=== PATIENT | female | born 1955 | race Caucasian/White ===

== ENCOUNTER 2020-09-04 11:56 | Emergency (ER) | payer MEDICARE ==
[2020-09-04 12:08] VITALS: RESP 18; TEMP 98.7
[2020-09-04] MEDS ORDERED: KETOROLAC 15 MG/ML 1 ML VIAL IVP STA (12:42)
--- NOTE | 2020-09-04 12:47 | ED ---
Chest Pain HPI - General Chief Complaint: Chest Pain Stated Complaint: chest pain Time Seen by Provider: 09/04/20 12:14 Source: patient, RN/MD, RN notes reviewed Mode of arrival: wheelchair Limitations: no limitations - History of Present Illness Initial Comments: This is a 64-year-old female with no prior history of heart disease who has been having intermittent episodes of midsternal chest pain for the past 3 days on and off. He states it hurts at times gets intermittent last 1-2 minutes and then go away. He states it worse it's about 8/10. She has some sweats with it when it comes on no shortness of breath no fevers or chills. She states she's been doing a lot of bloating of seen and wheezing for one region to another. She's been going upstairs was seen and also. She currently is working on a swimming pool. She's had no cough no phlegm production no palpitations no other complaints or modifying factors she states she does have fibrocystic breast disease and does have chest wall or chest and breast tenderness at times. MD Complaint: chest pain - Related Data Previous Rx's Medication Instructions Recorded Ibuprofen 800 mg PO Q6HR PRN #20 tablet 09/04/20 Allergies Allergy/AdvReac Type Severity Reaction Status Date / Time No Known Allergies Allergy Verified 09/04/20 12:08 Review of Systems ROS Statement: Those systems with pertinent positive or pertinent negative responses have been documented in the HPI. ROS Other: All systems not noted in ROS Statement are negative. EKG Findings - EKG Results: EKG: interpreted by ERMD, sinus rhythm ( palpation along the costal sternal margins no step-off or crepitation. and he shows normal sinus rhythm a 74. Interval 132 QRS 70 QT since QTC 380/421 this is comparable to 1 cm the patient's doctor's office.) Past Medical History Past Medical History: Hyperlipidemia, Thyroid Disorder Additional Past Medical History / Comment(s): pt on diabetic pill for recent weight gain, denies being diabetic History of Any Multi-Drug Resistant Organisms: None Reported Past Surgical History: Section, Cholecystectomy Additional Past Surgical History / Comment(s): bowel resection for scar tissue Past Psychological History: Anxiety, Depression Smoking Status: Former smoker Past Alcohol Use History: None Reported Past Drug Use History: None Reported General Exam - General Exam Comments Initial Comments: This is a well-developed well-nourished awake alert oriented 3 female Limitations: no limitations General appearance: alert, in no apparent distress Head exam: Present: atraumatic, normocephalic, normal inspection Eye exam: Present: normal appearance, PERRL, EOMI. Absent: scleral icterus, conjunctival injection, periorbital swelling ENT exam: Present: normal exam, mucous membranes moist Neck exam: Present: normal inspection, full ROM, other. Absent: tenderness, meningismus, lymphadenopathy Respiratory exam: Present: normal lung sounds bilaterally, chest wall tenderness (Genitourinary bruits). Absent: respiratory distress, wheezes, rales, rhonchi, stridor Cardiovascular Exam: Present: regular rate, normal rhythm, normal heart sounds. Absent: systolic murmur, diastolic murmur, rubs, gallop, clicks GI/Abdominal exam: Present: soft, normal bowel sounds. Absent: distended, tenderness, guarding, rebound, rigid Extremities exam: Present: normal inspection, full ROM, normal capillary refill. Absent: tenderness, pedal edema, joint swelling, calf tenderness Back exam: Present: normal inspection Neurological exam: Present: alert, oriented X3, CN II-XII intact Psychiatric exam: Present: normal affect, normal mood Skin exam: Present: warm, dry, intact, normal color. Absent: rash Course Vital Signs 09/04/20 09/04/20 09/04/20 11:58 12:36 13:10 Temperature 98.7 F Pulse Rate 77 87 65 Respiratory 18 18 18 Rate Blood Pressure 138/83 142/75 139/73 O2 Sat by Pulse 100 98 99 Oximetry Chest Pain MDM - MDM Imaging reviewed no acute findings reevaluation patient finds he feels improved the presentation is consistent with a chest wall strain and costochondritis she'll be discharged on appropriate anti-inflammatories we did have a long discu ssion regarding S patient will be discharged with follow-up with her doctor as needed and return when necessary Disposition Clinical Impression: Costochondritis, Chest wall syndrome Disposition: HOME SELF-CARE Condition: Good Instructions (If sedation given, give patient instructions): Costochondritis (ED) Prescriptions: Ibuprofen 800 mg PO Q6HR PRN #20 tablet PRN Reason: Pain Is patient prescribed a controlled substance at d/c from ED?: No Referrals: Leyla Meier DO [Primary Care Provider] - 1-2 days
[2020-09-04 12:50] LABS: Basophils # (A) 0.1 k/uL (0-0.2); Basophils % (A) 1 %; Eosinophils # (A) 0.4 k/uL (0-0.7); Eosinophils % (A) 5 %; HCT 39.4 % (34.0-46.0); Lymphocytes # (A) 1.9 k/uL (1.0-4.8); Lymphocytes % (A) 24 %; MCH 30.5 pg (25.0-35.0); MCHC 35.4 g/dL (31.0-37.0); MCV 86.1 fL (80.0-100.0); Mean Platelet Volume 6.6; Monocytes # (A) 0.4 k/uL (0-1.0); Monocytes % (A) 6 %; Neutrophils # (A) 5.1 k/uL (1.3-7.7); Neutrophils % (A) 64 %; Platelet Count 242 k/uL (150-450); RBC 4.58 m/uL (3.80-5.40)
--- NOTE | 2020-09-04 13:03 | XR ---
EXAMINATION TYPE: XR chest 2V DATE OF EXAM: 09/04/2020 COMPARISON: NONE HISTORY: Chest pain TECHNIQUE: Frontal and lateral views of the chest are obtained. FINDINGS: No evident airspace disease, pneumothorax, or pleural effusion. Cardiac mediastinal silhou ette, pulmonary vascularity and daryn are within normal limits. There are overlying leads. Surgical cl ips are present in the right upper quadrant. IMPRESSION: No acute cardiopulmonary process.
[2020-09-04 13:08] LABS: Albumin 4.2 g/dL (3.5-5.0); Calcium 9.5 mg/dL (8.4-10.2); Magnesium 1.8 mg/dL (1.6-2.3); Potassium 4.3 mmol/L (3.5-5.1); Total Bilirubin 0.5 mg/dL (0.2-1.3); Total Protein 6.8 g/dL (6.3-8.2)
[2020-09-04 13:22] LABS: D-Dimer 0.42 mg/L FEU (<0.60); INR 0.9 (<1.2); Partial Thromboplastin Time 24.3 sec (22.0-30.0); Prothrombin Time 10.1 sec (9.0-12.0)
[2020-09-04 13:59] VITALS: BP 142/69; PULSE 77
== END 2020-09-04 13:59 | disposition home or self-care (01) ==
LOC: EC 11:56
DX: M94.0 Chondrocostal junction syndrome [Tietze] (principal); R61 Generalized hyperhidrosis; R06.2 Wheezing; R14.0 Abdominal distension (gaseous); Z87.891 Personal history of nicotine dependence
CPT/HCPCS: 36415; 93005; 85379; 83880; 80053; 82550; 83690; 83735; 84484; 85025; 85610; 85730; 71046; 99285; 96374; J1885

== ENCOUNTER → 2020-10-16 | Outpatient (CLI) | payer MEDICARE ==
--- NOTE | 2020-10-23 10:36 | MM ---
Reason for exam: screening (asymptomatic). Last mammogram was performed 1 year ago. History: Patient is postmenopausal. Cyst aspiration of the left breast. 2 benign cyst aspirations of the right breast. Took hormonal contraceptives for 6 months. Took estrogen for 2 years beginning at age 50. Physical Findings: A clinical breast exam by your physician is recommended on an annual basis and results should be correlated with mammographic findings. MG 3D Screening Mammo W/Cad Bilateral CC and MLO view(s) were taken. Prior study comparison: October 11, 2019, mammogram, performed at [facility]. January 27, 2018, mammogram, performed at [facility]. November 02, 2013, bilateral MG screening mammo w CAD. The breast tissue is heterogeneously dense. This may lower the sensitivity of mammography. There is chronic nodularity in the right breast medial anterior CC view. Lobulated asymmetric density anterior central right MLO view is more defined. ASSESSMENT: Incomplete: need additional imaging evaluation, BI-RAD 0 RECOMMENDATION: Special view mammogram of the right breast. (3D) If lesion persists on supplemental views, image directed ultrasound is recommended. [facility] will attempt to contact patient to return for supplemental views and ultrasound if indicated.
== END | disposition home or self-care (01) ==
LOC: RADMAMWWP 13:34
PROVIDERS: ATTEND Family Medicine
DX: Z12.31 Encounter for screening mammogram for malignant neoplasm of breast (principal)
CPT/HCPCS: 77063; 77067

== ENCOUNTER → 2021-10-30 | Outpatient (CLI) | payer MEDICARE ==
--- NOTE | 2021-10-31 09:20 | MM ---
Reason for Exam: Screening (asymptomatic). Last screening mammogram was performed 12 month(s) ago. Patient History: Menarche at age 9. First Full-Term at age 26. Left ovary removed at age 48. Right ovary removed at age 48. Hysterectomy at age 48. Postmenopausal. Patient has history of breast feeding. Estrogen for 2 years from age 50 until age 52. Hormonal Contraceptives for 6 months. Benign Cyst Aspiration on the right side. Benign Cyst Aspiration on the right side. Cyst Aspiration on the Left side. Risk Values: Sanjuanita 5 year model risk: 2.1%. NCI Lifetime model risk: 6.7%. Prior Study Comparison: 01/27/2018 Screening Mammogram, [facility]. 10/11/2019 Screening Mammogram, [facility]. 10/16/2020 Bilateral Screening Mammogram, [facility]. Tissue Density: The breast tissue is heterogeneously dense. This may lower the sensitivity of mammography. Findings: Analyzed By CAD. There is no suspicious group of microcalcifications or new suspicious mass in either breast. Chronic nodularity within the right breast. Similar lobulated asymmetric density in the anterior central right MLO view. Overall Assessment: Incomplete: need additional imaging evaluation, BI-RAD 0 Management: Diagnostic Mammogram of the right breast. A clinical breast exam by your physician is recommended on an annual basis and results should be correlated with mammographic findings. [facility] will attempt to contact patient to return for supplemental views and ultrasound if indicated. Electronically signed and approved by: Filemon Loaiza D.O.
== END | disposition home or self-care (01) ==
LOC: RADMAMWWP 14:33
PROVIDERS: ATTEND Family Medicine
DX: Z12.31 Encounter for screening mammogram for malignant neoplasm of breast (principal)
CPT/HCPCS: 77063; 77067

== ENCOUNTER → 2021-11-09 | Outpatient (CLI) | payer MEDICARE ==
--- NOTE | 2021-11-09 14:26 | MM ---
Reason for Exam: Additional evaluation requested from abnormal screening. Last screening mammogram was performed less than 1 month ago. Patient History: Menarche at age 9. First Full-Term at age 26. Left ovary removed at age 48. Right ovary removed at age 48. Hysterectomy at age 48. Postmenopausal. Patient has history of breast feeding. Estrogen for 2 years from age 50 until age 52. Hormonal Contraceptives for 6 months. Benign Cyst Aspiration on the right side. Benign Cyst Aspiration on the right side. Cyst Aspiration on the Left side. Risk Values: Sanjuanita 5 year model risk: 2.1%. NCI Lifetime model risk: 6.7%. Prior Study Comparison: 12/29/2008 Bilateral Diagnostic Mammogram, [facility]. 10/05/2010 Bilateral Diagnostic Mammogram, [facility]. 10/05/2010 Left Diagnostic Ultrasound, [facility]. 11/02/2013 Bilateral Screening Mammogram, [facility]. 01/27/2018 Screening Mammogram, [facility]. 10/11/2019 Screening Mammogram, [facility]. 10/16/2020 Bilateral Screening Mammogram, [facility]. 10/30/2021 Bilateral MG 3D screening mammo w/cad, [facility]. Tissue Density: Right: The breast tissue is heterogeneously dense. This may lower the sensitivity of mammography. Findings: Analyzed By CAD. A compression craniocaudal view there is irregular density which appears to be 3 cm from the nipple at approximately the 4:00 position. This is less well-visualized on the rolled medial view and compression mediolateral oblique view. Additional evaluation with ultrasound is recommended. Overall Assessment: Incomplete: need additional imaging evaluation, BI-RAD 0 Management: Diagnostic Breast Ultrasound of the right breast. A clinical breast exam by your physician is recommended on an annual basis and results should be correlated with mammographic findings. This exam should not preclude additional follow-up of suspicious palpable abnormalities. Results were given to the patient verbally at the time of exam. Electronically signed and approved by: Juan Hanks D.O. Radiologis
--- NOTE | 2021-11-09 15:11 | USB ---
Patient History: Menarche at age 9. First Full-Term at age 26. Left ovary removed at age 48. Right ovary removed at age 48. Hysterectomy at age 48. Postmenopausal. Patient has history of breast feeding. Estrogen for 2 years from age 50 until age 52. Hormonal Contraceptives for 6 months. Benign Cyst Aspiration on the right side. Benign Cyst Aspiration on the right side. Cyst Aspiration on the Left side. Risk Values: Sanjuanita 5 year model risk: 2.1%. NCI Lifetime model risk: 6.7%. Prior Study Comparison: 10/11/2019 Screening Mammogram, [facility]. 10/16/2020 Bilateral Screening Mammogram, [facility]. 10/30/2021 Bilateral MG 3D screening mammo w/cad, [facility]. Findings: The medial section of the breast of the right breast, the axilla of the right breast and the retroareolar of the right breast were scanned. There is a lobular hypoechoic area at the 4:00 position 3 cm from the nipple. Corresponds to the mammographic findings. Posterior shadowing is present. Findings are considered suspicious and ultrasound-guided core biopsy is recommended. Overall Assessment: Suspicious, BI-RAD 4 Management: Ultrasound Core Biopsy of the right breast. A clinical breast exam by your physician is recommended on an annual basis and results should be correlated with mammographic findings. Electronically signed and approved by: Juan Hanks D.O. Radiologis
== END | disposition home or self-care (01) ==
LOC: RADMAMWWP 13:30
PROVIDERS: ATTEND Family Medicine
DX: R92.8 Other abnormal and inconclusive findings on diagnostic imaging of breast (principal)
CPT/HCPCS: 77065; 76642; G0279; 77061

== ENCOUNTER → 2021-12-07 | Outpatient (CLI) | payer MEDICARE ==
[2021-12-07 10:20] VITALS: BP 145/81; PULSE 78; RESP 12; TEMP 98.1
--- NOTE | 2021-12-07 11:11 | P.GSHP ---
History of Present Illness H&P Date: 12/07/21 Chief Complaint: abnormal right breast ultrasound Karina is a 66 year old white female seen in consultation for Dr. Nicole regarding an abnormal right breast ultrasound. She does not feel any changes in her breast. [place] [address] after which a diagnostic right breast mammogram and [place]. [place] [id number]. In the ultrasound a lobular hypoechoic area at the 4 o'clock position of the right breast was identified for which core biopsy was recommended. On the diagnostic mammogram was felt to be incomplete and ultrasound was recommended. She has had multiple cyst aspirations on the right breast in the past. She has never had any surgery on her breast. She is not complaining of any recent trauma or infection in the breast. Caffeine:stopped 3 weeks ago nicotine: stopped 40 years ago chocolate: daily BCP: 1 year at 16 hormones: 2 years at menopause, used them to get Family History: maternal grandfather: bladder cancer paternal grandfather: stomach paternal aunt: ? origin Hormonal History: menarche: 9 , breast fed: yes, age at first : 26 menopause: BENJA, done in 2004; concerns for cancer was negative at surgery Surgical History; Appy BENJA gallbaldder adhesions to small bowel Medical History: given after a mental breakdown/paroxetine simvastatin levothyroxine aspirin diet controlled diabetes - Constitutional Constitutional: Reports sweats - EENT Comment: cataract surgery Ears: deny: tinnitus Ears, nose, mouth and throat: Denies headache, Denies sore throat - Breasts Breasts: bilateral: as per HPI - Cardiovascular Cardiovascular: Denies chest pain, Denies shortness of breath - Respiratory Respiratory: Denies cough, Denies 7 - Gastrointestinal Gastrointestinal: Denies abdominal pain, Denies diarrhea, Denies nausea, Denies vomiting - Genitourinary (Female) Genitourinary: Denies dysuria, Denies hematuria - Menstruation Menstruation: Reports post hysterectomy - Musculoskeletal Musculoskeletal: Reports myalgias - Integumentary Integumentary: Denies pruritus, Denies rash - Neurological Neurological: Denies numbness, Denies weakness - Psychiatric Psychiatric: Reports as per HPI - Endocrine Endocrine: Reports fatigue, Denies weight change - Hematologic/Lymphatic Hematologic/Lymphatic: Reports as per HPI - Allergic/Immunologic Allergic/Immunologic: Reports seasonal allergies Past Medical History Past Medical History: Hyperlipidemia, Thyroid Disorder Additional Past Medical History / Comment(s): diet controlled type 2 diabetes History of Any Multi-Drug Resistant Organisms: None Reported Past Surgical History: Section, Cholecystectomy Additional Past Surgical History / Comment(s): bowel resection for scar tissue. Bilat cataract surgery Past Psychological History: Anxiety, Depression Smoking Status: Former smoker Past Alcohol Use History: Occasional Past Drug Use History: None Reported Medications and Allergies Home Medications Medication Instructions Recorded Confirmed Type Aspirin EC [Ecotrin Low Dose] 81 mg PO HS 09/04/20 12/07/21 History Atorvastatin Calcium [Lipitor] 40 mg PO HS 09/04/20 12/07/21 History Levothyroxine Sodium [Synthroid] 112 mcg PO DAILY 09/04/20 12/07/21 History PARoxetine [Paxil] 50 mg PO HS 09/04/20 12/07/21 History Allergies Allergy/AdvReac Type Severity Reaction Status Date / Time No Known Allergies Allergy Verified 12/07/21 10:14 Surgical - Exam Vital Signs Temp Pulse Resp BP Pulse Ox 98.1 F 78 12 145/81 97 12/07/21 10:16 12/07/21 10:16 12/07/21 10:16 12/07/21 10:16 12/07/21 10:16 BMI: 27.8 - General no distress - Eyes normal ocular movement - Neck trachea midline - Respiratory normal respiratory effort - Cardiovascular Rhythm: regular Heart Sounds: normal: S1, S2 - Abdomen Abdomen: soft, non tender, no guarding, no rigid, no rebound - Integumentary normal turgor - Neurologic no disoriented, no combative - Musculoskeletal normal gait - Psychiatric oriented to time, oriented to person, oriented to place, speech is normal, memory intact Breast Exam: BRA: XL sports inspection: Bilateral grade 2/3 ptosis Palpation: Right breast: Multiple positional exam fibrocystic changes no discrete dominant masses or nodules of concern Right axilla: No adenopathy of concern Left breast: Multi-positional exam fibrocystic changes no dominant masses or nodules of concern Left axilla: No adenopathy of concern Results ultrasound and mammogram personally reviewed Assessment and Plan Assessment: Impression: given after a mental breakdown/paroxetine simvastatin levothyroxine aspirin diet controlled diabetes Abnormal right breast ultrasound Fibrocystic breast changes Plan: Ultrasound-guided right breast core biopsy Follow-up after ultrasound-guided core biopsy Patient scale risk evaluation reveals a five-year risk of 2.1%, she has declined chemoprevention at this time we will await results of her biopsy CC: Dr. Nicole
== END | disposition home or self-care (01) ==
LOC: WWCWWP 10:05
PROVIDERS: ATTEND Surgery
DX: Z53.9 Procedure and treatment not carried out, unspecified reason (principal)

== ENCOUNTER → 2021-12-10 | Day surgery (SDC) | payer MEDICARE ==
--- NOTE | 2021-12-14 10:48 | USB ---
Risk Values: Sanjuanita 5 year model risk: 2.1%. NCI Lifetime model risk: 6.7%. Pathology Description: Location: 4 o'clock, lower outer quadrant, anterior. Cores: 6 Gauge: 13 The irregular shadowing area measuring up to 9 mm is identified at the 4:00 position, 3 cm from the nipple. This is targeted for biopsy. We note that the patient has complex breast tissue with multiple areas of shadowing. The procedure of ultrasound guided core biopsy was explained to the patient. Benefits, alternatives, and risks were discussed. An informed consent was then obtained. The patient was placed in supine positioning for imaging and for the procedure. The overlying skin was prepped and draped in usual sterile fashion. Lidocaine was used as anesthetic into the skin and subcutaneous tissue up to area of concern in the 4:00 right breast. Under ultrasound guidance, a 13-gauge vacuum-assisted mammotome Elite biopsy gun was used to obtain 6 core samples. Following this, a Hydromark T3 coil clip was placed at the biopsy site. The patient tolerated the procedure well without any immediate complication. The patient was kept in the radiology department for short stay after the procedure and then discharged home in stable condition. Postprocedure mammogram: The patient was transferred to mammography for physician ordered post procedure mammogram for clip placement verification. Mammogram shows clip at the site of mammographic focal asymmetry. However, given patient's complex shadowing tissue diffusely, overall suspicion is low to intermediate. Impression: Successful, uncomplicated ultrasound guided core biopsy of area of concern in the 4:00 right breast, full pathology results to follow. Pathology Results: Result: Benign, Fibrocystic change. 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 Tissue Density: Right: The breast tissue is heterogeneously dense. This may lower the sensitivity of mammography. Overall Assessment: Benign Assessment: MG diagnostic mammo RT wo CAD - Right: Benign, BI-RAD 2. Management: Diagnostic Mammogram of the right breast in 6 months. Electronically signed and approved by: Bertha Riddle M.D. Radiologist
== END ==
LOC: RADUSWWP 12:37
PROVIDERS: ATTEND Surgery
DX: N60.11 Diffuse cystic mastopathy of right breast (principal); N62 Hypertrophy of breast; R92.8 Other abnormal and inconclusive findings on diagnostic imaging of breast
CPT/HCPCS: 88305; 77065; 19083; A4648

== ENCOUNTER → 2022-01-04 | Outpatient (CLI) | payer MEDICARE ==
[2022-01-04 10:26] VITALS: BP 149/78; PULSE 85; RESP 16; TEMP 98.4
--- NOTE | 2022-01-04 10:50 | P.PN ---
Subjective Progress Note Date: 01/04/22 Principal diagnosis: fibrocystic breast disease Karina is a 66 year old whtie female status post a right breast ultrasound guided core biopsy on 12-10-21. 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 The patient tolerated the procedure without difficulty. The findings are felt to be benign and concordant. Objective - Vital Signs Vital signs: Vital Signs Temp 98.4 F 01/04/22 10:23 Pulse 85 01/04/22 10:23 Resp 16 01/04/22 10:23 BP 149/78 01/04/22 10:23 Pulse Ox 96 01/04/22 10:23 FiO2 Intake & Output 01/03/22 01/04/22 01/04/22 18:59 06:59 18:59 Weight 73.482 kg - Constitutional General appearance: Present: cooperative - EENT Eyes: Present: EOMI ENT: Present: hearing grossly normal - Neck Neck: Present: normal ROM - Respiratory Respiratory: bilateral: CTA - Cardiovascular Heart sounds: normal: S1, S2 - Integumentary Integumentary Comment(s): Biopsy site clean and dry no evidence of infection or hematoma Assessment and Plan Assessment: Impression: Fibrocystic changes right breast Sanjuanita risk five-year 2.1% patient declined chemoprevention Plan: Right breast diagnostic mammogram 6 months with physician exam at that time Patient to follow up sooner any questions or concerns Cc: Dr. Otilio Nicole
== END | disposition home or self-care (01) ==
LOC: WWCWWP 09:18
PROVIDERS: ATTEND Surgery
DX: Z53.9 Procedure and treatment not carried out, unspecified reason (principal)

== ENCOUNTER → 2022-06-14 | Outpatient (CLI) | payer MEDICARE ==
[2022-06-14 14:38] VITALS: BP 152/84; PULSE 83; RESP 17; TEMP 98.1
== END ==
LOC: WWCWWP 12:58
PROVIDERS: ATTEND Surgery
DX: R92.8 Other abnormal and inconclusive findings on diagnostic imaging of breast (principal); N60.11 Diffuse cystic mastopathy of right breast; Z78.0 Asymptomatic menopausal state; Z98.890 Other specified postprocedural states; Z79.82 Long term (current) use of aspirin; Z79.890 Hormone replacement therapy; E11.9 Type 2 diabetes mellitus without complications; E78.5 Hyperlipidemia, unspecified; Z87.891 Personal history of nicotine dependence

== ENCOUNTER → 2022-06-14 | Outpatient (CLI) | payer MEDICARE ==
--- NOTE | 2022-06-14 14:27 | MM ---
Reason for Exam: Follow-up at short interval from prior study. Last screening mammogram was performed 7 month(s) ago. Patient History: Menarche at age 9. First Full-Term at age 26. Left ovary removed at age 48. Right ovary removed at age 48. Hysterectomy at age 48. Postmenopausal. Patient has history of breast feeding. Estrogen for 2 years from age 50 until age 52. Hormonal Contraceptives for 6 months. 12/10/2021, Benign US biopsy breast VAD RT on the right side. Benign Cyst Aspiration on the right side. Benign Cyst Aspiration on the right side. Cyst Aspiration on the Left side. Risk Values: Sanjuanita 5 year model risk: 2.5%. NCI Lifetime model risk: 7.9%. Prior Study Comparison: 01/27/2018 Screening Mammogram, [facility]. 10/11/2019 Screening Mammogram, [facility]. 10/16/2020 Bilateral Screening Mammogram, [facility]. 10/30/2021 Bilateral MG 3D screening mammo w/cad, [facility]. 11/09/2021 Right MG 3D work up w/cad RT, [facility]. 12/10/2021 Right MG diagnostic mammo RT wo CAD, [facility]. Tissue Density: Right: The breast tissue is heterogeneously dense. This may lower the sensitivity of mammography. Findings: Analyzed By CAD. No evidence for mass or distortion. Microclip marker right breast. No suspicious calcifications. Overall Assessment: Benign, BI-RAD 2 Management: Screening Mammogram of both breasts in 6 months. A clinical breast exam by your physician is recommended on an annual basis and results should be correlated with mammographic findings. This exam should not preclude additional follow-up of suspicious palpable abnormalities. Results were given to the patient verbally at the time of exam. Electronically signed and approved by: Vikash Gilbert M.D. Radiologis
--- NOTE | 2022-06-14 14:44 | P.PN ---
Subjective Progress Note Date: 06/14/22 Principal diagnosis: right breast follow up mammogram Karina is a 66 year old white female seen in consultation for Dr. Nicole regarding an abnormal right breast ultrasound. She does not feel any changes in her breast. [place] [address] after which a diagnostic right breast mammogram [place]. [place] [id number]. In the ultrasound a lobular hypoechoic area at the 4 o'clock position of the right breast was identified for which core biopsy was recommended. On the diagnostic mammogram was felt to be incomplete and ultrasound was recommended. She has had multiple cyst aspirations on the right breast in the past. She has never had any surgery on her breast. She is not complaining of any recent trauma or infection in the breast. 06-14-22 Karina had a [place] [id number] which is benign BIRADS 2. This was done secondary to the fact that she had an ultrasound core biopsy of the right breast on [id number]. This was benign and concordant. She does not feel any lumps masses or nodules of concern in either breast. Sanjuanita risk evaluation 2.5% at 5 years, we have discussed chemoprophylaxis the patient has declined. Caffeine:stopped 3 weeks ago nicotine: stopped 40 years ago chocolate: daily BCP: 1 year at 16 hormones: 2 years at menopause, used them to get Family History: maternal grandfather: bladder cancer paternal grandfather: stomach paternal aunt: ? origin Hormonal History: menarche: 9 , breast fed: yes, age at first : 26 menopause: BENJA, done in 2004; concerns for cancer was negative at surgery Surgical History; Appkallie YOUSIF gallbaldder adhesions to small bowel Medical History: given after a mental breakdown/paroxetine simvastatin levothyroxine aspirin diet controlled diabetes - Constitutional Constitutional: Reports sweats - EENT Comment: cataract surgery Ears: deny: tinnitus Ears, nose, mouth and throat: Denies headache, Denies sore throat - Breasts Breasts: bilateral: as per HPI - Cardiovascular Cardiovascular: Denies chest pain, Denies shortness of breath - Respiratory Respiratory: Denies cough, Denies 7 - Gastrointestinal Gastrointestinal: Denies abdominal pain, Denies diarrhea, Denies nausea, Denies vomiting - Genitourinary (Female) Genitourinary: Denies dysuria, Denies hematuria - Menstruation Menstruation: Reports post hysterectomy - Musculoskeletal Musculoskeletal: Reports myalgias - Integumentary Integumentary: Denies pruritus, Denies rash - Neurological Neurological: Denies numbness, Denies weakness - Psychiatric Psychiatric: Reports as per HPI - Endocrine Endocrine: Reports fatigue, Denies weight change - Hematologic/Lymphatic Hematologic/Lymphatic: Reports as per HPI - Allergic/Immunologic Allergic/Immunologic: Reports seasonal allergies Past Medical History Past Medical History: Hyperlipidemia, Thyroid Disorder Additional Past Medical History / Comment(s): diet controlled type 2 diabetes History of Any Multi-Drug Resistant Organisms: None Reported Past Surgical History: Section, Cholecystectomy Additional Past Surgical History / Comment(s): bowel resection for scar tissue. Bilat cataract surgery Past Psychological History: Anxiety, Depression Smoking Status: Former smoker Past Alcohol Use History: Occasional Past Drug Use History: None Reported Medications and Allergies Home Medications Medication Instructions Recorded Confirmed Type Aspirin EC [Ecotrin Low Dose] 81 mg PO HS 09/04/20 12/07/21 History Atorvastatin Calcium [Lipitor] 40 mg PO HS 09/04/20 12/07/21 History Levothyroxine Sodium [Synthroid] 112 mcg PO DAILY 09/04/20 12/07/21 History PARoxetine [Paxil] 50 mg PO HS 09/04/20 12/07/21 History Allergies Allergy/AdvReac Type Severity Reaction Status Date / Time No Known Allergies Allergy Verified 12/07/21 10:14 Objective - Constitutional General appearance: Present: cooperative - EENT Eyes: Present: EOMI ENT: Present: hearing grossly normal - Neck Neck: Present: normal ROM - Respiratory Respiratory: bilateral: CTA - Cardiovascular Rhythm: regular Heart sounds: normal: S1, S2 - Gastrointestinal General gastrointestinal: Present: soft - Integumentary Integumentary: Present: normal turgor - Musculoskeletal Musculoskeletal: Present: gait normal - Psychiatric Psychiatric: Present: A&O x's 3, appropriate affect, intact judgment & insight - Additional findings Additional findings: Breast Exam: BRA: XL sports inspection: Bilateral grade 2/3 ptosis Palpation: Right breast: Multiple positional exam fibrocystic changes no discrete dominant masses or nodules of concern Right axilla: No adenopathy of concern Left breast: Multi-positional exam fibrocystic changes no dominant masses or nodules of concern Left axilla: No adenopathy of concern Assessment and Plan Assessment: Impression: given after a mental breakdown/paroxetine simvastatin levothyroxine aspirin diet controlled diabetes fibrocystic breast changes Right breast mammogram [id number] benign BIRADS 2 Plan: Bilateral mammogram and physician exam in 6 months Patient to follow up sooner any questions or concerns CC: Dr. Nicole
== END | disposition home or self-care (01) ==
LOC: RADMAMWWP 13:31
PROVIDERS: ATTEND Surgery
DX: R92.8 Other abnormal and inconclusive findings on diagnostic imaging of breast (principal); Z78.0 Asymptomatic menopausal state; Z98.890 Other specified postprocedural states
CPT/HCPCS: 77065; G0279; 77061

== ENCOUNTER → 2022-12-19 | Outpatient (CLI) | payer MEDICARE ==
[2022-12-19 14:00] VITALS: BP 148/75; PULSE 95; RESP 18; TEMP 97.9
== END ==
LOC: WWCWWP 13:14
PROVIDERS: ATTEND Surgery
DX: Z12.31 Encounter for screening mammogram for malignant neoplasm of breast (principal)

== ENCOUNTER → 2022-12-19 | Outpatient (CLI) | payer MEDICARE ==
--- NOTE | 2022-12-19 13:44 | P.PN ---
Subjective Progress Note Date: 12/19/22 Principal diagnosis: fibrocystic breast changes 12-19-22 Karina is a 67 year old white female she presents for breast examination. She is not complaining of any new lumps masses or nodules of concern in either breast. A bilateral mammogram was performed on and has not yet been read. 10 multiple cysts aspirated in her right breast. She had a core biopsy of the right breast and [id number] which was benign concordant. Sanjuanita risk evaluation 2.5% at 5 years, we have discussed chemoprophylaxis the patient has declined. Caffeine:stopped 3 weeks ago nicotine: stopped 40 years ago chocolate: daily BCP: 1 year at 16 hormones: 2 years at menopause, used them to get Family History: maternal grandfather: bladder cancer paternal grandfather: stomach paternal aunt: ? origin Hormonal History: menarche: 9 , breast fed: yes, age at first : 26 menopause: BENJA, done in 2004; concerns for cancer was negative at surgery Surgical History; Appy BENJA gallbaldder adhesions to small bowel Medical History: given after a mental breakdown/paroxetine simvastatin levothyroxine aspirin diet controlled diabetes - Constitutional Constitutional: Reports sweats - EENT Comment: cataract surgery Ears: deny: tinnitus Ears, nose, mouth and throat: Denies headache, Denies sore throat - Breasts Breasts: bilateral: as per HPI - Cardiovascular Cardiovascular: Denies chest pain, Denies shortness of breath - Respiratory Respiratory: Denies cough, Denies 7 - Gastrointestinal Gastrointestinal: Denies abdominal pain, Denies diarrhea, Denies nausea, Denies vomiting - Genitourinary (Female) Genitourinary: Denies dysuria, Denies hematuria - Menstruation Menstruation: Reports post hysterectomy - Musculoskeletal Musculoskeletal: Reports myalgias - Integumentary Integumentary: Denies pruritus, Denies rash - Neurological Neurological: Denies numbness, Denies weakness - Psychiatric Psychiatric: Reports as per HPI - Endocrine Endocrine: Reports fatigue, Denies weight change - Hematologic/Lymphatic Hematologic/Lymphatic: Reports as per HPI - Allergic/Immunologic Allergic/Immunologic: Reports seasonal allergies Past Medical History Past Medical History: Hyperlipidemia, Thyroid Disorder Additional Past Medical History / Comment(s): diet controlled type 2 diabetes History of Any Multi-Drug Resistant Organisms: None Reported Past Surgical History: Section, Cholecystectomy Additional Past Surgical History / Comment(s): bowel resection for scar tissue. Bilat cataract surgery Past Psychological History: Anxiety, Depression Smoking Status: Former smoker Past Alcohol Use History: Occasional Past Drug Use History: None Reported Medications and Allergies Home Medications Medication Instructions Recorded Confirmed Type Aspirin EC [Ecotrin Low Dose] 81 mg PO HS 09/04/20 12/07/21 History Atorvastatin Calcium [Lipitor] 40 mg PO HS 09/04/20 12/07/21 History Levothyroxine Sodium [Synthroid] 112 mcg PO DAILY 09/04/20 12/07/21 History PARoxetine [Paxil] 50 mg PO HS 09/04/20 12/07/21 History Allergies Allergy/AdvReac Type Severity Reaction Status Date / Time No Known Allergies Allergy Verified 12/07/21 10:14 Objective - Constitutional General appearance: Present: cooperative - EENT Eyes: Present: EOMI ENT: Present: hearing grossly normal - Neck Neck: Present: normal ROM - Respiratory Respiratory: bilateral: CTA - Cardiovascular Rhythm: regular Heart sounds: normal: S1, S2 - Integumentary Integumentary: Present: normal turgor - Musculoskeletal Musculoskeletal: Present: gait normal - Psychiatric Psychiatric: Present: A&O x's 3, appropriate affect, intact judgment & insight - Additional findings Additional findings: Breast Exam: BRA: XL sports inspection: Bilateral grade 2/3 ptosis Palpation: Right breast: Multiple positional exam fibrocystic changes no discrete dominant masses or nodules of concern Right axilla: No adenopathy of concern Left breast: Multi-positional exam fibrocystic changes no dominant masses or nodules of concern Left axilla: No adenopathy of concern Assessment and Plan Assessment: Impression: given after a mental breakdown/paroxetine simvastatin levothyroxine aspirin diet controlled diabetes fibrocystic breast changes bilateral mammogram 12-19-22 Plan: await results of bilateral mammogram nothing on examination which would warrant interventional biopsy at this time Patient to follow up sooner any questions or concerns CC: Dr. Nicole
--- NOTE | 2022-12-20 20:57 | MM ---
Reason for Exam: Screening (asymptomatic). Last mammogram was performed 1 year(s) and 2 month(s) ago. Patient History: Menarche at age 9. First Full-Term at age 26. Left ovary removed at age 48. Right ovary removed at age 48. Hysterectomy at age 48. Postmenopausal. Patient has history of breast feeding. Estrogen for 2 years from age 50 until age 52. Hormonal Contraceptives for 6 months. 12/10/2021, Benign US biopsy breast VAD RT on the right side. Benign Cyst Aspiration on the right side. Benign Cyst Aspiration on the right side. Cyst Aspiration on the Left side. Risk Values: Sanjuanita 5 year model risk: 2.5%. NCI Lifetime model risk: 7.6%. Prior Study Comparison: 11/09/2021 Right MG 3D work up w/cad RT, [facility]. 12/10/2021 Right MG diagnostic mammo RT wo CAD, [facility]. 06/14/2022 Right MG 3D diag mammo w/cad RT, [facility]. Tissue Density: The breast tissue is heterogeneously dense. This may lower the sensitivity of mammography. Findings: Analyzed By CAD. On the right CC view, a medial asymmetric density located just posterior to the biopsy clip is more defined. On the right MLO view, asymmetric density superiorly at a middle depth and also inferiorly at an anterior depth are both more defined. All of these areas may represent superimposition shadow but further evaluation is recommended. Other areas of asymmetric densities remain unchanged. Overall Assessment: Incomplete: need additional imaging evaluation, BI-RAD 0 Management: Special View Mammogram of the right breast. Diagnostic Breast Ultrasound of the right breast. Additional views to include spot 3-D CC, 3-D CC rolled lateral, spot 3-D MLO of 2 areas, and 3-D LM views. Targeted right breast ultrasound of any persisting abnormality. [facility] will attempt to contact patient to return for supplemental views and ultrasound if indicated. Electronically signed and approved by: Bertha Riddle M.D. Radiologist
== END | disposition home or self-care (01) ==
LOC: RADMAMWWP 13:16
PROVIDERS: ATTEND Surgery
DX: Z12.31 Encounter for screening mammogram for malignant neoplasm of breast (principal); R92.8 Other abnormal and inconclusive findings on diagnostic imaging of breast; Z78.0 Asymptomatic menopausal state
CPT/HCPCS: 77067

== ENCOUNTER → 2023-01-03 | Outpatient (CLI) | payer MEDICARE ==
--- NOTE | 2023-01-03 10:50 | MM ---
Reason for Exam: Additional evaluation requested from prior study. Last screening mammogram was performed less than 1 month ago. Patient History: Menarche at age 9. First Full-Term at age 26. Left ovary removed at age 48. Right ovary removed at age 48. Hysterectomy at age 48. Postmenopausal. Patient has history of breast feeding. Estrogen for 2 years from age 50 until age 52. Hormonal Contraceptives for 6 months. 12/10/2021, Benign US biopsy breast VAD RT on the right side. Benign Cyst Aspiration on the right side. Benign Cyst Aspiration on the right side. Cyst Aspiration on the Left side. Risk Values: Sanjuanita 5 year model risk: 2.5%. NCI Lifetime model risk: 7.6%. Prior Study Comparison: 10/30/2021 Bilateral MG 3D screening mammo w/cad, [facility]. 11/09/2021 Right MG 3D work up w/cad RT, [facility]. 12/10/2021 Right MG diagnostic mammo RT wo CAD, [facility]. 06/14/2022 Right MG 3D diag mammo w/cad RT, [facility]. 12/19/2022 Bilateral MG screening mammo w CAD, [facility]. Tissue Density: Right: The breast tissue is heterogeneously dense. This may lower the sensitivity of mammography. Findings: Analyzed By CAD. Asymmetric density upper outer right breast 8.6 cm from the nipple persists and ultrasound is recommended. More anterior density does not persist at this time. Overall Assessment: Incomplete: need additional imaging evaluation, BI-RAD 0 Management: Diagnostic Breast Ultrasound of the right breast. . Results were given to the patient verbally at the time of exam. Patient should continue monthly self-breast exams. A clinical breast exam by your physician is recommended on an annual basis. This exam should not preclude additional follow-up of suspicious palpable abnormalities. Note on Sanjuanita scores and lifetime risk: 1. A Sanjuanita score greater than 3% is considered moderate risk. If this is the case, consider specialist referral to assess eligibility for a risk reducing agent. 2. If overall lifetime risk for the development of breast cancer is 20% or higher, the patient may qualify for future screening with alternating mammogram and breast MRI. Electronically signed and approved by: Vikash Gilbert M.D. Radiologis
--- NOTE | 2023-01-03 11:27 | USB ---
Reason for Exam: Additional evaluation requested from abnormal screening. Patient History: Menarche at age 9. First Full-Term at age 26. Left ovary removed at age 48. Right ovary removed at age 48. Hysterectomy at age 48. Postmenopausal. Patient has history of breast feeding. Estrogen for 2 years from age 50 until age 52. Hormonal Contraceptives for 6 months. 12/10/2021, Benign US biopsy breast VAD RT on the right side. Benign Cyst Aspiration on the right side. Benign Cyst Aspiration on the right side. Cyst Aspiration on the Left side. Risk Values: Sanjuanita 5 year model risk: 2.5%. NCI Lifetime model risk: 7.6%. Technique: Method: Targeted. Prior Study Comparison: 12/10/2021 Right MG diagnostic mammo RT wo CAD, [facility]. 06/14/2022 Right MG 3D diag mammo w/cad RT, [facility]. 12/19/2022 Bilateral MG screening mammo w CAD, [facility]. Findings: The upper outer quadrant of the right breast, the axilla of the right breast and the retroareolar of the right breast were scanned. Nonmass Elongated hypoechoic area at the right 11:00 position 9 cm from the nipple. Findings could reflect prominent duct. Six-month follow-up advised. Overall Assessment: Probably benign, BI-RAD 3 Management: Diagnostic Mammogram of the right breast in 6 months. A clinical breast exam by your physician is recommended on an annual basis and results should be correlated with mammographic findings. This exam should not preclude additional follow-up of suspicious palpable abnormalities. Results were given to the patient verbally at the time of exam. Electronically signed and approved by: Vikash Gilbert M.D. Radiologis
== END | disposition home or self-care (01) ==
LOC: RADMAMWWP 10:18
PROVIDERS: ATTEND Surgery
DX: R92.331 Mammographic heterogeneous density, right breast (principal); Z78.0 Asymptomatic menopausal state
CPT/HCPCS: 77065; 76642; G0279; 77061

== ENCOUNTER → 2023-07-23 | Outpatient (CLI) | payer MEDICARE ==
--- NOTE | 2023-07-23 13:40 | MM ---
Reason for Exam: Follow-up at short interval from prior study. Last screening mammogram was performed 7 month(s) ago. Patient History: Menarche at age 9. First Full-Term at age 26. Left ovary removed at age 48. Right ovary removed at age 48. Hysterectomy at age 48. Postmenopausal. Patient has history of breast feeding. Estrogen for 2 years from age 50 until age 52. Hormonal Contraceptives for 6 months. 12/10/2021, Benign US biopsy breast VAD RT on the right side. Benign Cyst Aspiration on the right side. Benign Cyst Aspiration on the right side. Cyst Aspiration on the Left side. Risk Values: Sanjuanita 5 year model risk: 2.5%. NCI Lifetime model risk: 7.6%. Prior Study Comparison: 06/14/2022 Right MG 3D diag mammo w/cad RT, [facility]. 12/19/2022 Bilateral MG screening mammo w CAD, [facility]. 01/03/2023 Right MG 3D work up w/cad RT, [facility]. Tissue Density: Right: The breasts are heterogeneously dense, which may obscure small masses. Findings: Analyzed By CAD. Areas of asymmetric density remain unchanged when compared against various prior studies. The previously seen medial and superior focal asymmetry has not persisted. No significant change from prior exams. Overall Assessment: Benign, BI-RAD 2 Management: Screening Mammogram of both breasts in 5 months. Back on schedule. Results were given to the patient verbally at the time of exam. Patient should continue monthly self-breast exams. A clinical breast exam by your physician is recommended on an annual basis. This exam should not preclude additional follow-up of suspicious palpable abnormalities. Note on Sanjuanita scores and lifetime risk: 1. A Sanjuanita score greater than 3% is considered moderate risk. If this is the case, consider specialist referral to assess eligibility for a risk reducing agent. 2. If overall lifetime risk for the development of breast cancer is 20% or higher, the patient may qualify for future screening with alternating mammogram and breast MRI. Electronically signed and approved by: Bertha Riddle M.D. Radiologist
== END | disposition home or self-care (01) ==
LOC: RADMAMWWP 13:17
PROVIDERS: ATTEND Family Medicine
DX: R92.331 Mammographic heterogeneous density, right breast (principal); Z78.0 Asymptomatic menopausal state
CPT/HCPCS: 77065; G0279; 77061

== ENCOUNTER → 2023-12-25 | Outpatient (CLI) | payer MEDICARE ==
--- NOTE | 2023-12-29 09:40 | MM ---
Reason for Exam: Screening (asymptomatic). Last screening mammogram was performed 12 month(s) ago. Patient History: Menarche at age 9. First Full-Term at age 26. Left ovary removed at age 48. Right ovary removed at age 48. Hysterectomy at age 48. Postmenopausal. Patient has history of breast feeding. Estrogen for 2 years from age 50 until age 52. Hormonal Contraceptives for 6 months. 12/10/2021, Benign US biopsy breast VAD RT on the right side. Benign Cyst Aspiration on the right side. Benign Cyst Aspiration on the right side. Cyst Aspiration on the Left side. Risk Values: Sanjuanita 5 year model risk: 2.5%. NCI Lifetime model risk: 7.2%. Prior Study Comparison: 12/19/2022 Bilateral MG screening mammo w CAD, [facility]. 01/03/2023 Right MG 3D work up w/cad RT, [facility]. 07/23/2023 Right MG 3D diag mammo w/cad RT, [facility]. Tissue Density: The breasts are heterogeneously dense, which may obscure small masses. Findings: Analyzed By CAD. Right breast: There is no suspicious group of microcalcifications or new suspicious mass. Left breast: There is no suspicious group of microcalcifications or new suspicious mass. Overall Assessment: Negative, BI-RAD 1 Management: Screening Mammogram of both breasts in [address] [facility] will attempt to contact patient to return for supplemental views and ultrasound if indicated. Patient should continue monthly self-breast exams. A clinical breast exam by your physician is recommended on an annual basis. This exam should not preclude additional follow-up of suspicious palpable abnormalities. Note on Sanjuanita scores and lifetime risk: 1. A Sanjuanita score greater than 3% is considered moderate risk. If this is the case, consider specialist referral to assess eligibility for a risk reducing agent. 2. If overall lifetime risk for the development of breast cancer is 20% or higher, the patient may qualify for future screening with alternating mammogram and breast MRI. [facility], , 12/29/2023 9:35 AM. Electronically signed and approved by: Juan Daniel Stephen DO
== END | disposition home or self-care (01) ==
LOC: RADMAMWWP 15:22
PROVIDERS: ATTEND Family Medicine
CPT/HCPCS: 77063; 77067